=== PATIENT | female | born 1990 | race Hispanic/Latino ===

== ENCOUNTER 2019-08-14 18:09 | Inpatient (IN) | payer MEDICAID, OTHER ==
[~2019-08-14] VITALS: Ht 157.5 cm; Wt 109.8 kg
[2019-08-14 19:32] LABS: APPEARANCE,URINE Cloudy (CLEAR); BILIRUBIN,URINE Negative (NEGATIVE); COLOR,URINE Dark Yellow (YELLOW); GLUCOSE, URINE (UA) Negative (NEGATIVE); KETONES,URINE Trace mg/dL (NEGATIVE); LEUKOCYTE ESTERASE ,URINE Large (NEGATIVE); NITRATE,URINE Negative (NEGATIVE); OCCULT BLOOD,URINE Moderate (NEGATIVE); PH,URINE 7.5 (5.0-8.0); PROTEIN,URINE Trace mg/dL (NEGATIVE)
[2019-08-14 20:07] LABS: BACTERIA,URINE Moderate /HPF (None Seen); MUCUS,URINE Few LPF (None Seen)
[2019-08-14 20:10] LABS: MEAN CORPUSCULAR HEMOGLOBIN 28.4 pg (27.0-33.0); MEAN CORPUSCULAR HGB CONC 33.9 g/dL (32.0-36.0); MEAN CORPUSCULAR VOLUME 83.9 fL (79-99); PLATELET COUNT (AUTO) 244 K/uL (130-400); RED BLOOD CELL COUNT(AUTO) 4.06 MIL/uL (4.00-5.50); RED CELL DISTRIBUTION WIDTH 16.7 % (11.0-15.5); WHITE BLOOD COUNT (AUTO) 7.5 K/uL (4.8-10.8)
[2019-08-14] MEDS: LACTATED RINGERS 1000ML 1,000 ML IV PRN (20:15)
[2019-08-14] MEDS ORDERED: MEPERIDINE-PF 50 MG/ML SYG ONE (23:57)
[2019-08-15] MEDS ORDERED: MEPERIDINE-PF 50 MG/ML SYG IVP ONE
[2019-08-15] MEDS ORDERED: LIDOCAINE HCL 1% 20 ML VIAL ONE (01:43)
[2019-08-15] MEDS ORDERED: MEPERIDINE-PF 25 MG/ML SYG ONE (02:21)
[2019-08-15] MEDS ORDERED: MEPERIDINE-PF 25 MG/ML SYG IVP ONE (02:30)
[2019-08-15] MEDS ORDERED: OXYTOCIN 10 USP UNITS/ML 20 UNIT in LACTATED RINGERS 1000ML 1,000 ML IV SCH (03:00)
[2019-08-15] MEDS: LACTATED RINGERS 1000ML 1,000 ML IV PRN (03:14)
[2019-08-15] MEDS ORDERED: ACETAMINOPHEN 325 MG TAB PO PRN (05:30)
[2019-08-15] MEDS ORDERED: ACETAMINOPHEN-CODEINE 300/30MG TAB PO PRN (05:30)
[2019-08-15] MEDS ORDERED: WITCH HAZEL 1 PAD TP PRN (05:30)
[2019-08-15] MEDS ORDERED: BENZOCAINE/LANOLIN/ALOE VERA 60 ML AEROSOL TP PRN (05:30)
[2019-08-15] MEDS ORDERED: LANOLIN 30GM OINTMENT TP PRN (05:30)
[2019-08-15] MEDS: IBUPROFEN 600 MG TABLET PO PRN ×2 (05:34→16:18)
[2019-08-15] MEDS: OXYTOCIN-LR 20 UNITS/1000 ML 1,000 ML IV SCH ×2 (06:30→19:15)
[2019-08-15 07:17] VITALS: BP 101/69
--- NOTE | 2019-08-15 07:30 | NUR ---
ASSESSMENT FUNDUS FIRM AT UMBILICUS, BLEEDING IS SCANT. INFORMED PATIENT ON EMERGENCY CALL CORD IN RESTROOM, ADVISED TO CALL WITH ANY NEEDS OR CONCERNS. CALL LIGHT LEFT IN REACH.
[2019-08-15] MEDS ORDERED: DIPH,PERTUSS(ACELL),TET VAC/PF 0.5 ML VIAL IM SCH (08:45)
[2019-08-15] MEDS ORDERED: FLU VACC QS2019-20 36MOS UP/PF 60 MCG/0.5 ML ML IM ONE (08:45)
[2019-08-15] MEDS: DOCUSATE SODIUM 100 MG CAP PO SCH ×2 (08:58→20:13)
[2019-08-15] MEDS ORDERED: FERR325T22 PO (10:05)
[2019-08-15] MEDS ORDERED: PNV1TABL17 PO (10:05)
[2019-08-15 12:09] VITALS: BP 124/68
--- NOTE | 2019-08-15 14:05 | NUR ---
PATIENT SALINE LOCKED AT THIS TIME. BABY LATCHED TO LET BREAST SUCCESSFULLY. ADVISED PATIENT TO CALL WITH ANY NEEDS OR CONCERNS. AT BEDSIDE.
[2019-08-15 16:42] VITALS: BP 110/57
[2019-08-15 19:34] VITALS: BP 111/65
[2019-08-15] MEDS: PROMETHAZINE HCL 25 MG/ML 1ML AMPULE IM SCH ×2 (19:55)
[2019-08-15 23:32] VITALS: BP 93/59
[2019-08-16 04:07] VITALS: BP 112/59
[2019-08-16 05:43] LABS: BASOPHILS % (AUTO) 0.6 % (0.0-5.0); EOSINOPHILS % (AUTO) 1.4 % (0.0-8.0); HEMATOCRIT 29.8 % (36-48); LYMPHOCYTES % (AUTO) 21.9 % (21.0-51.0); MEAN CORPUSCULAR HEMOGLOBIN 28.3 pg (27.0-33.0); MEAN CORPUSCULAR HGB CONC 33.7 g/dL (32.0-36.0); MEAN CORPUSCULAR VOLUME 84.1 fL (79-99); MONOCYTES % (AUTO) 7.8 % (3.0-13.0); NEUTROPHILS % (AUTO) 68.3 % (40.0-77.0); PLATELET COUNT (AUTO) 196 K/uL (130-400); RED BLOOD CELL COUNT(AUTO) 3.54 MIL/uL (4.00-5.50); RED CELL DISTRIBUTION WIDTH 16.5 % (11.0-15.5); WHITE BLOOD COUNT (AUTO) 7.8 K/uL (4.8-10.8)
[2019-08-16 07:27] VITALS: BP 109/58
[2019-08-16 08:11] LABS: HEPATITIS Bs ANTIGEN SCREEN P Negative (Negative)
[2019-08-16] MEDS: DOCUSATE SODIUM 100 MG CAP PO SCH (09:09)
[2019-08-16] MEDS: IBUPROFEN 600 MG TABLET PO PRN (09:10)
[2019-08-16 11:54] VITALS: BP 107/70
--- NOTE | 2019-08-16 12:25 | NUR ---
DISCHARGE PT STABLE, NO PAIN, NO COMPLAINTS; PT LEFT UNIT, VIA WHEELCHAIR, WITH BABY IN ARMS, ACCOMPANIED BY OYNY LOPEZ AND SPOUSE CARRYING ALL PERSONAL BELONGINGS, INSTRUCTIONS, AND SITZ BATH; PT LEFT FACILITY IN PERSONAL VEHICLE
== END 2019-08-16 12:25 | disposition home or self-care (01) | DRG 807 ==
LOC: LDH 18:09 → WSH 08-15 05:11
PROVIDERS: ADMIT Obstetrics & Gynecology; ATTEND Obstetrics & Gynecology
PROC: 10E0XZZ Delivery of Products of Conception, External Approach (ICD-10-PCS; principal; 2019-08-14)
PROC: 0HQ9XZZ Repair Perineum Skin, External Approach (ICD-10-PCS; 2019-08-14)
PROC: 3E0234Z Introduction of Serum, Toxoid and Vaccine into Muscle, Percutaneous Approach (ICD-10-PCS; 2019-08-15)
PROC: 3E02340 Introduction of Influenza Vaccine into Muscle, Percutaneous Approach (ICD-10-PCS; 2019-08-15)
DX: O70.0 First degree perineal laceration during delivery (principal); Z37.0 Single live birth; Z3A.39 39 weeks gestation of pregnancy; Z23 Encounter for immunization
CPT/HCPCS: 36415; 81001; 85025; 85027; 86592; 86850; 86900; 86901; 87340; 90715; G0008; G0378; J2175; J2590; J7120